=== PATIENT | male | born 1990 | race Caucasian/White ===

== ENCOUNTER 2023-06-19 16:05 | Emergency (ER) | payer MEDICAID ==
[~2023-06-19] VITALS: Ht 172.7 cm; Wt 85.0 kg
[2023-06-19 16:12] VITALS: O2SAT 100
[2023-06-19] MEDS ORDERED: FLUORESCEIN SODIUM 1MG/STRIP RIGHTEYE ONE (17:15)
[2023-06-19] MEDS ORDERED: TETRACAINE 0.5% OPHTH DROPS 4ML RIGHTEYE ONE (17:15)
[2023-06-19] MEDS ORDERED: CIPR2.5D20 RIGHTEYE (18:16)
[2023-06-19 18:34] VITALS: BP 134/64; PULSE 87; RESP 16; TEMP 98.9
== END 2023-06-19 18:36 | disposition home or self-care (01) ==
LOC: ER 16:17
DX: H57.11 Ocular pain, right eye (principal); Z90.49 Acquired absence of other specified parts of digestive tract
CPT/HCPCS: 99282

== ENCOUNTER 2023-07-13 13:05 | Emergency (ER) | payer MEDICAID ==
[~2023-07-13] VITALS: Ht 172.7 cm; Wt 84.0 kg
[~2023-07-13 13:05] MED LIST: CIPR2.5D20 RIGHTEYE
[2023-07-13 13:30] VITALS: BP 133/82; PULSE 87; RESP 15; TEMP 98.6; O2SAT 100
[2023-07-13] MEDS ORDERED: FLUORESCEIN SODIUM 1MG/STRIP RIGHTEYE ONE (14:00)
== END 2023-07-13 15:31 | disposition left against medical advice (07) ==
LOC: ER 13:05
DX: H57.11 Ocular pain, right eye (principal); Z98.890 Other specified postprocedural states
CPT/HCPCS: 99283

== ENCOUNTER 2024-02-14 07:41 | Emergency (ER) | payer MEDICAID ==
[~2024-02-14] VITALS: Ht 180.3 cm; Wt 91.0 kg
[2024-02-14 07:45] VITALS: O2SAT 97
[2024-02-14 08:10] LABS: EOSINOPHILS % 1.8 % (0.0-5.0); HEMATOCRIT. 40.7 % (42.0-52.0); HEMOGLOBIN. 14.2 g/dL (14.0-18.0); LYMPHOCYTES % 27.3 % (20.0-50.0); MEAN CORPUSCULAR HEMOGLOBIN 31.1 pg (28.0-32.0); MEAN CORPUSCULAR HGB CONC 34.8 g/dL (31.0-37.0); MEAN CORPUSCULAR VOLUME 89.5 fL (80.0-94.0); MEAN PLATELET VOLUME 8.9 fl (7.4-10.4); MONOCYTES % 7.9 % (2.0-8.0); PLATELET 159 x1000/uL (130-400); RED BLOOD CELL COUNT 4.54 mill/uL (4.7-6.1); RED CELL DISTRIBUTION WIDTH 12.8 % (11.6-14.6); WHITE BLOOD COUNT 6.5 x1000/uL (4.5-11.0)
[2024-02-14 08:17] LABS: CHLORIDE 108 mEq/L (98-107); POTASSIUM 3.8 mEq/L (3.5-5.1); SODIUM 139 mEq/L (136-145)
[2024-02-14 08:18] LABS: CALCIUM 9.1 mg/dL (8.7-10.4); CARBON DIOXIDE 25 mEq/L (21-32)
[2024-02-14 08:23] LABS: GLUCOSE 105 mg/dL (70-105); UREA NITROGEN BLOOD 9 mg/dL (9-23)
[2024-02-14] MEDS: SODIUM CHLORIDE 0.9% 1,000 ML IV ONE (08:43)
[2024-02-14 08:46] LABS: ETHANOL BLOOD < 10 mg/dL (<10); TROPONIN I HIGH SENSITIVITY < 4 ng/L (3.0-53)
[2024-02-14] MEDS: LORAZEPAM 0.5MG TABLET PO ONE (09:02)
[2024-02-14 09:45] VITALS: BP 116/55; PULSE 98; RESP 15; TEMP 98.7
== END 2024-02-14 10:16 | disposition home or self-care (01) ==
LOC: ER 07:41
DX: R00.2 Palpitations (principal); F15.90 Other stimulant use, unspecified, uncomplicated; I47.10 Supraventricular tachycardia, unspecified; Z90.49 Acquired absence of other specified parts of digestive tract
CPT/HCPCS: 80048; 80320; 83880; 85025; 84484; 36415; 71045; 93005; 96360; 99285; J7030; G0480